=== PATIENT | female | born 1975 | race Caucasian/White ===

== ENCOUNTER 2017-01-17 13:40 | Emergency (ER) | payer OTHER ==
[~2017-01-17] VITALS: Ht 162.6 cm; Wt 91.0 kg
[~2017-01-17 13:40] MED LIST: RELPAX20 MG OR; TRAMADOL HCL50 MG OR; [UNRECOGNIZED DRUG - CODE] SC
[2017-01-17 13:58] VITALS: BP 140/87
[2017-01-17] MEDS ORDERED: IMITREX25 MG PO (15:17)
[2017-01-17] MEDS ORDERED: IMURAN50 MG PO (15:20)
[2017-01-17] MEDS ORDERED: SUMATRIPTAN25 MG PO (15:22)
[2017-01-17] MEDS ORDERED: PREDNISONE10 MG PO (15:23)
[2017-01-17] MEDS ORDERED: PHENERGAN25 MG/TAB PO (15:24)
== END 2017-01-17 16:14 | disposition home or self-care (01) | DRG 951 ==
LOC: ED 13:40
DX: Z76.0 Encounter for issue of repeat prescription (principal); G35 Multiple sclerosis

== ENCOUNTER 2017-07-03 11:45 | Emergency (ER) | payer OTHER ==
[~2017-07-03] VITALS: Ht 162.6 cm; Wt 95.6 kg
[~2017-07-03 11:45] MED LIST changes: +IMITREX25 MG PO; +IMURAN50 MG PO; +PHENERGAN25 MG/TAB PO; +PREDNISONE10 MG PO; +SUMATRIPTAN25 MG PO
[2017-07-03] MEDS ORDERED: LORTAB 1010 MG PO (12:56)
[2017-07-03 12:58] VITALS: BP 133/97
== END 2017-07-03 13:08 | disposition home or self-care (01) | DRG 601 ==
LOC: ED 11:45
DX: N64.4 Mastodynia (principal); G35 Multiple sclerosis; F17.210 Nicotine dependence, cigarettes, uncomplicated

== ENCOUNTER 2017-07-11 12:20 | Emergency (ER) | payer SELFPAY ==
[~2017-07-11] VITALS: Ht 162.6 cm; Wt 100.0 kg
[~2017-07-11 12:20] MED LIST changes: +LORTAB 1010 MG PO
[2017-07-11 13:12] VITALS: BP 136/88
== END 2017-07-11 13:12 | disposition home or self-care (01) | DRG 156 ==
LOC: ED 12:20
DX: H92.02 Otalgia, left ear (principal); G35 Multiple sclerosis; F17.290 Nicotine dependence, other tobacco product, uncomplicated